=== PATIENT | male | born 1935 | race Caucasian/White ===

== ENCOUNTER 2017-05-15 11:32 | Inpatient (IN) | payer MEDICARE ==
[~2017-05-15] VITALS: Ht 188 cm; Wt 76.2 kg
[2017-05-15] MEDS ORDERED: ONDANSETRON 4 MG/2 ML VIAL IV PRN (15:45)
[2017-05-15] MEDS ORDERED: Z GUARD REMEDY PASTE 57 GM TUBE TOP PRN (15:45)
[2017-05-15] MEDS ORDERED: MAGNESIUM HYDROXIDE 30 ML LIQUID UDC PO PRN (15:45)
[2017-05-15] MEDS ORDERED: HYDROCODONE/APAP 5-325MG TABLET PO PRN ×2 (15:45→20:45)
[2017-05-15] MEDS ORDERED: ACETAMINOPHEN 325 MG TABLET PO PRN ×2 (15:45→20:45)
[2017-05-15] MEDS ORDERED: ZOLPIDEM 5 MG TABLET PO PRN ×2 (15:45→20:45)
[2017-05-15] MEDS ORDERED: ACET-2154 PO (15:49)
[2017-05-15] MEDS ORDERED: ASCO500T10 PO (15:51)
[2017-05-15] MEDS ORDERED: ASPI81TA31 PO (15:53)
[2017-05-15] MEDS ORDERED: ATOR10TA PO (15:53)
[2017-05-15] MEDS ORDERED: CARB1TAB24 PO (15:57)
[2017-05-15] MEDS ORDERED: CHOL400T PO (15:58)
[2017-05-15] MEDS ORDERED: DIGO250T PO (16:00)
[2017-05-15] MEDS ORDERED: RASA1TAB4 PO (16:01)
[2017-05-15] MEDS ORDERED: HYDR-3974 PO (16:02)
[2017-05-15] MEDS ORDERED: MAG360OR83 PO (16:04)
[2017-05-15] MEDS ORDERED: MAGN400O6 PO (16:09)
[2017-05-15] MEDS ORDERED: MIDO5TAB PO (16:09)
[2017-05-15] MEDS ORDERED: MULT-24 PO (16:12)
[2017-05-15] MEDS ORDERED: MUPI22OI2 TP (16:14)
[2017-05-15] MEDS ORDERED: ONDA4TAB10 PO (16:15)
[2017-05-15] MEDS ORDERED: RIVA20TA PO (16:16)
[2017-05-15] MEDS ORDERED: VITA1TAB17 PO (16:21)
[2017-05-15] MEDS ORDERED: ZOLP5TAB8 PO (16:22)
[2017-05-15 16:58] VITALS: BP 130/77
--- NOTE | 2017-05-15 17:52 | NUR ---
pt admitted from [facility] at 1530. pt vitals stable. no signs of acute distress. all pertinent assessments done. pt has stage 2 sacral ulcer. wound consult order placed. pt tolerates room air. pt is afebrile. pt is alert and oriented x2. pt overestimates own ability. caregiver bedside and alarm on. pt instructed to use diaper until pt is assessed by PT. pt agreed. discussed plan of care with the family. belongings list on chart. pt has money bedside. instructed family to take the money for safety. family states that patient would want to keep the money to buy things he wants. pt agrees. pt has 300 dollars to start at bedside. all admission pictures in chart. will continue to monitor.
--- NOTE | 2017-05-15 18:45 | NUR ---
pt stable throughout the day. pt continues to show no signs of confusion during shift. pt on fall precautions. will endorse to boom truck driver nurse.
--- NOTE | 2017-05-15 19:44 | NUR ---
Received pt in bed, appearing to be asleep but arousable to verbal stimuli. No acute distress noted. Denies pain or discomfort at this time. Caregiver at bedside. All safety measures and fall precautions maintained. Call light and all personal belongings within reach. Will continue to monitor. MD notified regarding medication reconciliation
[2017-05-15] MEDS ORDERED: MAG HYDROX/AL HYDROX/SIMETH 30 ML LIQUID UDC PO PRN (20:45)
[2017-05-15 20:52] VITALS: BP 137/69
[2017-05-15] MEDS: MAGNESIUM HYDROXIDE 30 ML LIQUID UDC PO SCH ×2 (21:00→21:41)
[2017-05-15] MEDS: MUPIROCIN 2% OINT 22 GM TUBE NS SCH ×2 (21:00→21:41)
[2017-05-15] MEDS ORDERED: MUPIROCIN 2% OINT 22 GM TUBE TP SCH (21:00)
[2017-05-15] MEDS: ATORVASTATIN 10 MG TABLET PO SCH ×2 (21:00→21:40)
[2017-05-15] MEDS: DOCUSATE SODIUM 100 MG CAPSULE PO SCH ×2 (21:00→21:40)
--- NOTE | 2017-05-15 21:40 | NUR ---
Entered room, pt noted appearing to be asleep. Attempting to give 2100 medications, but pt was unresponsive to verbal and tactile stimuli. Caregiver at bedside. Saturation upon assessment noted to be 86%, but no acute distress noted. Breathing even and unlabored. Pt placed on 2L NC. VS WNL 137/83, HR 60, RR 16, and 100% saturation. Noted to be unresponsive to sternal rub and pressure on nail beds. Dr. Felix assessed pt, and per MD pt may be having a seizure. MD ordered Ativan 0.5 mg IVP q 2 hr PRN seizure. Noted and carried out. Started IV 22g on R AC, good blood return. Patent and intact. Saline locked. Administered IV medications as ordered. Well tolerated. No acute distress noted. No SOB, breathing even and unlabored. Continue to monitor patient throughout shift. Safety maintained. Caregiver remains at bedside.
[2017-05-15] MEDS ORDERED: LORAZEPAM 2 MG/1 ML VIAL IV PRN (22:00)
[2017-05-15] MEDS ORDERED: LORAZEPAM 2 MG/1 ML VIAL ONE (22:26)
--- NOTE | 2017-05-15 22:34 | NUR ---
Ativan 0.5 mg IVP given. Well tolerated. Safety maintained. Call light within reach. Caregiver at bedside. Will continue to monitor.
--- NOTE | 2017-05-16 00:21 | NUR ---
Pt noted to be verbally responsive, able to make needs known. Alert and oriented to person, but not location or date. Caregiver at bedside. Continuing 2L NC with saturation above 90%. No acute distress noted. Breathing even and unlabored, no SOB noted. Denies pain or discomfort at this time. Safety maintained. Call light and all personal belongings within reach. Will continue to monitor.
[2017-05-16] MEDS: PANTOPRAZOLE SODIUM 40 MG TABLET.DR PO SCH (06:24)
--- NOTE | 2017-05-16 06:24 | NUR ---
Attempted to give pt 0700 medications. Pt noted to be unresponsive to verbal stimuli but responsive to tactile stimuli. Wiped pt's face with cold towel and pt awoke, noted with facial grimacing. No acute distress noted. Breathing even and unlabored with no SOB noted. Noted to be snoring. VS WNL, 109/69, HR 72, 16 RR, and 98% saturation on 2L NC. Caregiver at bedside. Call light within reach. Safety maintained. Will continue to monitor. Will endorse to AM shift.
[2017-05-16 08:00] VITALS: BP 126/76
--- NOTE | 2017-05-16 08:00 | NUR ---
Received patient, lethargic. Hard to wake-up but able to follow simple commands, however is drowsy. On o2 at 2lpm.
[2017-05-16] MEDS: CHOLECALCIFEROL 400 UNITS TABLET PO SCH (09:00)
[2017-05-16] MEDS ORDERED: CARBIDOPA/LEVODOPA 25-250MG TABLET PO SCH (09:00)
[2017-05-16] MEDS ORDERED: VITAMIN B COMP W C PO SCH (09:00)
[2017-05-16] MEDS: VITAMIN B COMPLEX 1 TABLET PO SCH (09:00)
[2017-05-16] MEDS ORDERED: Medication Not On Formulary EA (Rasagiline Mesylate 1 MG) PO SCH (09:00)
[2017-05-16] MEDS: ASCORBIC ACID 500 MG TABLET PO SCH (09:00)
[2017-05-16] MEDS: MULTIVITAMINS,THERAPEUTIC TABLET PO SCH (09:00)
--- NOTE | 2017-05-16 09:00 | NUR ---
Patient very drowsy. Rest of AM medications was not given since patient is sedated. Informed Dr. Felix.
[2017-05-16] MEDS: ASPIRIN 81 MG TAB.CHEW PO SCH (09:08)
[2017-05-16] MEDS: MIDODRINE HCL 5 MG TABLET PO SCH ×3 (09:10→17:51)
[2017-05-16] MEDS: MUPIROCIN 2% OINT 22 GM TUBE NS SCH ×2 (09:27→20:19)
--- NOTE | 2017-05-16 10:00 | NUR ---
Patient had syncopal episode. Patient was up with physical therapy and therapist claimed patient lost consciousness while using the toilet. Patient regained consciousness less than a minute. Patient had 1 episode of vomiting after regaining consciousness, VS was as follows: Spo2 89% BP- 135/105 IN-77 Blood sugar 118. Addendum: 05/16/17 at 1558 by PIPPA PAIGE RN Notes for different patient
--- NOTE | 2017-05-16 10:30 | NUR ---
Patient awake, alert x2-3. Able to follow commands. Not in any form of distress. With relative at bedside. Able to tolerate fluids
--- NOTE | 2017-05-16 10:34 | NUR ---
Patient awake, alert x3. In bed resting with O2 sat at 98% with O2 at 2Lpm. Informed Dr. Felix, patient for GI consult. To start NS at 75cc/hr Addendum: 05/16/17 at 1559 by PIPPA PAIGE RN Notes for different patient
--- NOTE | 2017-05-16 11:00 | NUR ---
Seen and examined by Dr. Dooley. Dr Dooley facilitated care with therapists. Possible D/C of Ativan.
--- NOTE | 2017-05-16 13:48 | NUR ---
INTERDISCIPLINARY TEAM CONFERENCE
[2017-05-16] MEDS: DIGOXIN 250 MCG TABLET PO SCH (13:49)
--- NOTE | 2017-05-16 14:00 | NUR ---
INTERDISCIPLINARY TEAM CONFERENCE
--- NOTE | 2017-05-16 16:19 | NUR ---
Patient asleep in room air. Non-labored breathing. O2 sat at at 97%
--- NOTE | 2017-05-16 16:24 | NUR ---
Received patient, lethargic. Hard to wake-up but able to follow simple commands, however is drowsy. On o2 at 2lpm. Addendum: 05/16/17 at 1631 by PIPPA PAIGE RN Charting for 8:00 am 05/16/09
[2017-05-16] MEDS: CARBIDOPA/LEVODOPA 25-250MG TABLET PO SCH (17:52)
[2017-05-16] MEDS: RIVAROXABAN 10 MG TABLET PO SCH (17:53)
[2017-05-16] MEDS: MAGNESIUM HYDROXIDE 30 ML LIQUID UDC PO SCH (20:19)
[2017-05-16] MEDS: ATORVASTATIN 10 MG TABLET PO SCH (20:19)
[2017-05-16] MEDS: DOCUSATE SODIUM 100 MG CAPSULE PO SCH (20:19)
[2017-05-16 20:39] VITALS: BP 116/73
--- NOTE | 2017-05-17 05:48 | NUR ---
Patient slept comfortably at night. Caregiver at bedside. Room air 98%. No acute distress noted. No c/o pain or discomfort. Meds given and patient has been compliant. Safety measures maintained. Call light and personal belongings within reach. Will endorse to day shift RN. Continue to monitor.
[2017-05-17] MEDS: PANTOPRAZOLE SODIUM 40 MG TABLET.DR PO SCH (06:24)
--- NOTE | 2017-05-17 07:50 | NUR ---
Received patient asleep, easily arousable, not in any form of acute distress. No noted signs of any pain or discomfort at this time. Patient's caregiver at bedside. Call light placed within reach.
[2017-05-17 08:58] VITALS: BP 124/82
[2017-05-17] MEDS: CHOLECALCIFEROL 400 UNITS TABLET PO SCH (09:39)
[2017-05-17] MEDS: ASPIRIN 81 MG TAB.CHEW PO SCH (09:39)
[2017-05-17] MEDS: MULTIVITAMINS,THERAPEUTIC TABLET PO SCH (09:39)
[2017-05-17] MEDS: ASCORBIC ACID 500 MG TABLET PO SCH (09:40)
[2017-05-17] MEDS: MIDODRINE HCL 5 MG TABLET PO SCH ×3 (09:41→17:00)
[2017-05-17] MEDS: CARBIDOPA/LEVODOPA 25-250MG TABLET PO SCH ×2 (09:41→17:59)
[2017-05-17] MEDS: VITAMIN B COMPLEX 1 TABLET PO SCH (09:42)
[2017-05-17] MEDS: MUPIROCIN 2% OINT 22 GM TUBE NS SCH ×2 (09:43→20:20)
--- NOTE | 2017-05-17 10:45 | NUR ---
Patient up with physical therapist ambulating with walker along the hallway. No complain of any pain or discomfort.
[2017-05-17] MEDS: DIGOXIN 250 MCG TABLET PO SCH (13:58)
[2017-05-17] MEDS: AZILECT 1 MG PO SCH (14:09)
[2017-05-17] MEDS: RIVAROXABAN 10 MG TABLET PO SCH (18:06)
--- NOTE | 2017-05-17 18:56 | NUR ---
Notified Dr. Felix regarding BP of 145/89 with due midodrine and asked for hold parameter for administering midodrine. Per MD hold due dose and hold medication for SBP of 140 and above.
--- NOTE | 2017-05-17 19:30 | NUR ---
Received patient resting comfortably in bed and watching TV. Room air. MRSA of the nares came out negative. No acute distress noted. No c/o pain or discomfort. Safety measures maintained. Call light and personal belongings within reach. Will continue to monitor.
[2017-05-17] MEDS ORDERED: AMLODIPINE 5 MG TABLET PO ONE (20:15)
[2017-05-17] MEDS: MAGNESIUM HYDROXIDE 30 ML LIQUID UDC PO SCH (20:19)
[2017-05-17] MEDS: ATORVASTATIN 10 MG TABLET PO SCH (20:20)
[2017-05-17] MEDS: DOCUSATE SODIUM 100 MG CAPSULE PO SCH (20:20)
--- NOTE | 2017-05-17 20:20 | NUR ---
Pt's BP elevated 169/98, HR 60. Notified Dr. Felix. Received new order for amlodipine 5mg NOW and DAILY PO. Scheduled midodrine 5mg changed to PRN tid. Will follow through with the new orders.
[2017-05-17] MEDS ORDERED: MIDODRINE HCL 5 MG TABLET PO PRN (20:30)
--- NOTE | 2017-05-17 20:30 | NUR ---
Meds given per MD's order. No acute distress noted. Patient is alert and communicating well. No c/o pain or discomfort. Will continue to monitor patient.
[2017-05-17] MEDS ORDERED: AMLODIPINE 5 MG TABLET ONE (20:31)
[2017-05-17 20:41] VITALS: BP 169/98
[2017-05-17 21:30] VITALS: BP 151/93
--- NOTE | 2017-05-17 21:30 | NUR ---
Pt's BP 151/93, HR 60. No acute distress noted. No c/o pain or discomfort. Will continue to monitor.
--- NOTE | 2017-05-18 04:59 | NUR ---
Patient slept comfortably. Caregiver at bedside. Meds given per MD's order. Pt has been compliant. VS has been stable. All needs attended to promptly. . Turned and repositioned. Will endorse to day shift RN. Continue to monitor.
[2017-05-18] MEDS: PANTOPRAZOLE SODIUM 40 MG TABLET.DR PO SCH (06:15)
[2017-05-18 08:05] VITALS: BP 125/87
[2017-05-18] MEDS: ASPIRIN 81 MG TAB.CHEW PO SCH (08:50)
[2017-05-18] MEDS: CHOLECALCIFEROL 400 UNITS TABLET PO SCH (08:51)
[2017-05-18] MEDS: ASCORBIC ACID 500 MG TABLET PO SCH (08:51)
[2017-05-18] MEDS: CARBIDOPA/LEVODOPA 25-250MG TABLET PO SCH ×2 (08:52→18:20)
[2017-05-18] MEDS: VITAMIN B COMPLEX 1 TABLET PO SCH (08:53)
[2017-05-18] MEDS: MULTIVITAMINS,THERAPEUTIC TABLET PO SCH (08:54)
[2017-05-18] MEDS: AZILECT 1 MG PO SCH (08:55)
[2017-05-18] MEDS: AMLODIPINE 5 MG TABLET PO SCH (08:56)
[2017-05-18] MEDS: MUPIROCIN 2% OINT 22 GM TUBE NS SCH (09:03)
[2017-05-18] MEDS: DIGOXIN 250 MCG TABLET PO SCH (13:00)
[2017-05-18] MEDS: NEUPRO 4 MG/24 HR TOP SCH (15:09)
--- NOTE | 2017-05-18 18:05 | NUR ---
Patient is awake and alert, compliant with his plan of care, denies any pain and not in acute distress at this time. Provided with safety and fall precautions implemented, bed-locked and on a low position, with bed alarm on as well. Encouraged patient to turn and reposition for pressure relief. Needs attended promptly. Call light in reach.
[2017-05-18] MEDS: RIVAROXABAN 10 MG TABLET PO SCH (18:21)
--- NOTE | 2017-05-18 19:43 | NUR ---
Pt resting comfortably in bed and talking on the phone with . AAO X2. No acute distress noted. No c/o pain or discomfort. Safety measures maintained. Bed alarm on. Call light and personal belongings within reach. Will continue to monitor.
[2017-05-18] MEDS: ATORVASTATIN 10 MG TABLET PO SCH (20:01)
[2017-05-18] MEDS: DOCUSATE SODIUM 100 MG CAPSULE PO SCH (20:02)
[2017-05-18 20:42] VITALS: BP 144/91
--- NOTE | 2017-05-19 06:02 | NUR ---
Patient slept comfortably t/o the night. Caregiver at bedside. Meds given per MD's order. Pt compliant. Assisted to the bathroom as needed. All needs attended to promptly. Will endorse to day shift RN. Continue to monitor.
[2017-05-19] MEDS: PANTOPRAZOLE SODIUM 40 MG TABLET.DR PO SCH (06:12)
[2017-05-19 07:59] VITALS: BP 154/96
[2017-05-19] MEDS: VITAMIN B COMPLEX 1 TABLET PO SCH (08:29)
[2017-05-19] MEDS: ASPIRIN 81 MG TAB.CHEW PO SCH (08:29)
[2017-05-19] MEDS: AZILECT 1 MG PO SCH (08:30)
[2017-05-19] MEDS: AMLODIPINE 5 MG TABLET PO SCH (08:31)
[2017-05-19] MEDS: CARBIDOPA/LEVODOPA 25-250MG TABLET PO SCH ×2 (08:32→16:44)
[2017-05-19] MEDS: ASCORBIC ACID 500 MG TABLET PO SCH (08:33)
[2017-05-19] MEDS: MULTIVITAMINS,THERAPEUTIC TABLET PO SCH (08:33)
[2017-05-19] MEDS: CHOLECALCIFEROL 400 UNITS TABLET PO SCH (08:33)
[2017-05-19] MEDS: NEUPRO 4 MG/24 HR TOP SCH (08:35)
[2017-05-19] MEDS: DIGOXIN 250 MCG TABLET PO SCH (14:10)
[2017-05-19] MEDS: RIVAROXABAN 10 MG TABLET PO SCH (17:06)
--- NOTE | 2017-05-19 17:31 | NUR ---
Patient is awake and alert, compliant with his plan of care, denies any pain and not in acute distress at this time. came by to visit and encouraged patient to eat, since he didnt eat his lunch, patient was able to eat atleast 75% with 's encouragement. Safety and fall precautions implemented, bed-locked and on a low position, with bed alarm on as well. Encouraged patient to turn and reposition for pressure relief. Needs attended promptly,kept clean and dry, Call light in reach.
[2017-05-19] MEDS: ATORVASTATIN 10 MG TABLET PO SCH (20:48)
[2017-05-19] MEDS: DOCUSATE SODIUM 100 MG CAPSULE PO SCH (20:48)
[2017-05-19 21:00] VITALS: BP 153/96
[2017-05-19 21:32] VITALS: BP 153/96
[2017-05-20] MEDS: PANTOPRAZOLE SODIUM 40 MG TABLET.DR PO SCH (06:32)
[2017-05-20 08:14] VITALS: BP 153/92
[2017-05-20] MEDS: CARBIDOPA/LEVODOPA 25-250MG TABLET PO SCH ×2 (08:39→17:22)
[2017-05-20] MEDS: ASCORBIC ACID 500 MG TABLET PO SCH (08:39)
[2017-05-20] MEDS: ASPIRIN 81 MG TAB.CHEW PO SCH (08:39)
[2017-05-20] MEDS: AZILECT 1 MG PO SCH (08:39)
[2017-05-20] MEDS: CHOLECALCIFEROL 400 UNITS TABLET PO SCH (08:39)
[2017-05-20] MEDS: VITAMIN B COMPLEX 1 TABLET PO SCH (08:39)
[2017-05-20] MEDS: MULTIVITAMINS,THERAPEUTIC TABLET PO SCH (08:39)
[2017-05-20] MEDS: AMLODIPINE 5 MG TABLET PO SCH (08:41)
[2017-05-20] MEDS: NEUPRO 4 MG/24 HR TOP SCH (08:46)
[2017-05-20] MEDS: DIGOXIN 250 MCG TABLET PO SCH (12:23)
[2017-05-20] MEDS: RIVAROXABAN 10 MG TABLET PO SCH (17:24)
--- NOTE | 2017-05-20 19:29 | NUR ---
pt stable throughout the day. pt continues to be stable no new injuries noted. bed alarm and bedsite private caregiver at some parts of the day. pt vitals stable. will endorse to line palletizer nurse.
--- NOTE | 2017-05-20 19:30 | NUR ---
PT IN ROOM ALERT AND ASLEEP. DENIES ANY HEADACHES, PAIN, SOB, OR DISCOMFORT AT THIS TIME. SPOUSE AWARE OF RECENT FOOD INTAKE. AWAITING CG PER SPOUSE LATER TONIGHT. BP NOTED 142/68. CONTINUE TO MONITOR.
[2017-05-20 20:47] VITALS: BP 142/68
[2017-05-20] MEDS: ATORVASTATIN 10 MG TABLET PO SCH (21:27)
[2017-05-20] MEDS: DOCUSATE SODIUM 100 MG CAPSULE PO SCH (21:28)
--- NOTE | 2017-05-21 01:00 | NUR ---
PT IN ROOM ASLEEP AT THIS TIME IN NO ACUTE DISTRESS. CG NOTED AT BEDSIDE. CONTINUE TO MONITOR.
--- NOTE | 2017-05-21 06:00 | NUR ---
PT IN ROOM ALERT AWAKE IN NO ACUTE DISTRESS. DENIES ANY PAIN OR DISCOMFORT. ABLE TO SLEEP WITIHOUT DIFFICULTY. CG AT BEDSIDE ASSISTING WITH ADLS. PT REPOSITIONED AND MAINTAINED HOB AT 30 DEGREES. CONTINUE TO MONITOR.
[2017-05-21] MEDS: PANTOPRAZOLE SODIUM 40 MG TABLET.DR PO SCH (06:45)
[2017-05-21 08:00] VITALS: BP 129/85
[2017-05-21 08:40] LABS: BASOPHILS # (AUTO) 0.1 K/uL (0.0-8.0); BASOPHILS % (AUTO) 1.3 % (0.0-2.0); EOSINOPHILS # (AUTO) 0.4 K/uL (0.0-0.7); EOSINOPHILS % (AUTO) 4.2 % (0.0-7.0); HEMATOCRIT 39.3 % (36.7-47.1); HEMOGLOBIN 13.6 g/dL (12.5-16.3); LYMPHOCYTES # (AUTO) 1.9 K/uL (20.0-40.0); MEAN CORPUSCULAR HEMOGLOBIN 31.6 uug (23.8-33.4); MEAN CORPUSCULAR HGB CONC 35 g/dL (32.5-36.3); MEAN CORPUSCULAR VOLUME 91.5 fL (73.0-96.2); MONOCYTES # (AUTO) 0.7 K/uL (2.0-10.0); MONOCYTES % (AUTO) 7.7 % (0.0-11.0); NEUTROPHILS # (AUTO) 6.4 K/uL (1.8-8.9); NEUTROPHILS % (AUTO) 66.8 % (38.5-71.5); PLATELET COUNT (AUTO) 341 K/uL (152-348); WHITE BLOOD COUNT (AUTO) 9.6 K/uL (3.6-10.2)
[2017-05-21] MEDS: AZILECT 1 MG PO SCH (09:00)
[2017-05-21 09:01] LABS: THYROID STIMULATING HORMONE 3.316 mIU/mL (0.358-3.740)
[2017-05-21 09:26] LABS: ALANINE AMINOTRANSFERASE 11 U/L (16-63); ALKALINE PHOSPHATASE 55 U/L (50-136); ASPARTATE AMINOTRANSFERASE 29 U/L (15-37); CARBON DIOXIDE 27 mmol/L (21-32); CHLORIDE 105 mmol/L (98-107); CHOLESTEROL 136 mg/dL (<200); CREATININE 1.2 mg/dL (0.6-1.3); GLUCOSE 80 mg/dL (74-106); HDL CHOLESTEROL 29 mg/dL (40-60); MAGNESIUM 2.1 mg/dL (1.8-2.4); PHOSPHOROUS 3.6 mg/dL (2.5-4.9); POTASSIUM 3.7 mmol/L (3.5-5.1); TOTAL PROTEIN, SERUM 6.7 g/dL (6.4-8.2); TRIGLYCERIDES 105 MG/DL (30-150); UREA NITROGEN, BLOOD 14 mg/dL (7-18)
[2017-05-21] MEDS: ASPIRIN 81 MG TAB.CHEW PO SCH (09:28)
[2017-05-21] MEDS: MULTIVITAMINS,THERAPEUTIC TABLET PO SCH (09:28)
[2017-05-21] MEDS: CHOLECALCIFEROL 400 UNITS TABLET PO SCH (09:28)
[2017-05-21] MEDS: AMLODIPINE 5 MG TABLET PO SCH (09:29)
[2017-05-21] MEDS: CARBIDOPA/LEVODOPA 25-250MG TABLET PO SCH ×2 (09:30→17:26)
[2017-05-21] MEDS: ASCORBIC ACID 500 MG TABLET PO SCH (09:31)
[2017-05-21] MEDS: NEUPRO 4 MG/24 HR TOP SCH (09:32)
[2017-05-21] MEDS: VITAMIN B COMPLEX 1 TABLET PO SCH (09:33)
[2017-05-21] MEDS: DIGOXIN 250 MCG TABLET PO SCH (13:41)
[2017-05-21] MEDS: RIVAROXABAN 10 MG TABLET PO SCH (17:27)
--- NOTE | 2017-05-21 17:54 | NUR ---
Patient remains stable throughout the shift, no c/o pain or discomfort noted, no injury or episode of fall noted. Medication compliant and cooperative. Visited by family. Will continue to monitor for safety and needs.
[2017-05-21 19:45] VITALS: BP 139/67
--- NOTE | 2017-05-21 19:46 | NUR ---
Pt sleeping comfortably in bed. Awaken easily when called by name. AAO x2. No acute distress noted. No c/o pain or discomfort. Safety measures maintained. Call light and personal belongings within reach. Will continue to monitor.
[2017-05-21] MEDS: ATORVASTATIN 10 MG TABLET PO SCH (21:16)
[2017-05-21] MEDS: DOCUSATE SODIUM 100 MG CAPSULE PO SCH (21:16)
[2017-05-21] MEDS ORDERED: DOCUSATE SODIUM 100 MG CAPSULE PO ONE (21:23)
--- NOTE | 2017-05-22 05:47 | NUR ---
Pt slept comfortably t/o the night. VSS. Caregiver at bedside. Meds given per MD's order. Pt compliant. All needs attended to promptly. Turned and repositioned patient. Offloading on the sacral area. New picture taken and put in the chart. Will endorse to day shift RN. Continue to monitor.
[2017-05-22] MEDS: PANTOPRAZOLE SODIUM 40 MG TABLET.DR PO SCH (06:12)
[2017-05-22] MEDS: VITAMIN B COMPLEX 1 TABLET PO SCH (09:00)
[2017-05-22] MEDS: AZILECT 1 MG PO SCH (09:00)
[2017-05-22 09:08] VITALS: BP 121/78
[2017-05-22] MEDS: ASCORBIC ACID 500 MG TABLET PO SCH (09:53)
[2017-05-22] MEDS: CARBIDOPA/LEVODOPA 25-250MG TABLET PO SCH ×2 (09:53→18:22)
[2017-05-22] MEDS: CHOLECALCIFEROL 400 UNITS TABLET PO SCH (09:54)
[2017-05-22] MEDS: ASPIRIN 81 MG TAB.CHEW PO SCH (09:54)
[2017-05-22] MEDS: MULTIVITAMINS,THERAPEUTIC TABLET PO SCH (09:55)
[2017-05-22] MEDS: AMLODIPINE 5 MG TABLET PO SCH (09:55)
[2017-05-22] MEDS: NEUPRO 4 MG/24 HR TOP SCH (09:56)
[2017-05-22] MEDS: DIGOXIN 250 MCG TABLET PO SCH (13:00)
[2017-05-22] MEDS: RIVAROXABAN 10 MG TABLET PO SCH (18:24)
[2017-05-22 20:01] VITALS: BP 122/83
[2017-05-22] MEDS: DOCUSATE SODIUM 100 MG CAPSULE PO SCH (20:57)
[2017-05-22] MEDS: ATORVASTATIN 10 MG TABLET PO SCH (20:57)
--- NOTE | 2017-05-22 22:02 | NUR ---
Patient resting comfortably, no signs of distress noted. Assisted to the bathroom, patient voided w/o difficulty. Tolerated night p.o medications. Personal male-caregiver came to swatch the patient all night for safety. Will continue to monitor.
[2017-05-23] MEDS: PANTOPRAZOLE SODIUM 40 MG TABLET.DR PO SCH (06:10)
[2017-05-23 08:16] VITALS: BP 121/74
[2017-05-23] MEDS: CHOLECALCIFEROL 400 UNITS TABLET PO SCH (08:58)
[2017-05-23] MEDS: CARBIDOPA/LEVODOPA 25-250MG TABLET PO SCH ×2 (08:59→17:47)
[2017-05-23] MEDS: AMLODIPINE 5 MG TABLET PO SCH (09:00)
[2017-05-23] MEDS: ASPIRIN 81 MG TAB.CHEW PO SCH (09:00)
[2017-05-23] MEDS: MULTIVITAMINS,THERAPEUTIC TABLET PO SCH (09:00)
[2017-05-23] MEDS: ASCORBIC ACID 500 MG TABLET PO SCH (09:00)
[2017-05-23] MEDS: VITAMIN B COMPLEX 1 TABLET PO SCH (09:04)
[2017-05-23] MEDS: NEUPRO 4 MG/24 HR TOP SCH (09:04)
[2017-05-23] MEDS: AZILECT 1 MG PO SCH (09:04)
--- NOTE | 2017-05-23 14:03 | NUR ---
INTERDISCIPLINARY TEAM CONFERENCE
[2017-05-23] MEDS: DIGOXIN 250 MCG TABLET PO SCH (15:37)
[2017-05-23] MEDS: RIVAROXABAN 10 MG TABLET PO SCH (17:49)
[2017-05-23 19:56] VITALS: BP 150/90
[2017-05-23] MEDS: DOCUSATE SODIUM 100 MG CAPSULE PO SCH (20:31)
[2017-05-23] MEDS: ATORVASTATIN 10 MG TABLET PO SCH (20:31)
--- NOTE | 2017-05-24 05:37 | NUR ---
PATIENT SLEPT MOST OF THE NIGHT, NO SOB NO CHEST PAIN NOTED, NO COMPLAIN OF PAIN, PATIENT HAS PRIVATE SITTER, KEPT CLEAN AND DRY, CONT TO MONITOR.
[2017-05-24] MEDS: PANTOPRAZOLE SODIUM 40 MG TABLET.DR PO SCH (06:09)
[2017-05-24 07:30] VITALS: BP 122/74
[2017-05-24] MEDS: CARBIDOPA/LEVODOPA 25-250MG TABLET PO SCH ×2 (08:20→17:13)
[2017-05-24] MEDS: ASPIRIN 81 MG TAB.CHEW PO SCH (08:20)
[2017-05-24] MEDS: ASCORBIC ACID 500 MG TABLET PO SCH (08:21)
[2017-05-24] MEDS: CHOLECALCIFEROL 400 UNITS TABLET PO SCH (08:22)
[2017-05-24] MEDS: VITAMIN B COMPLEX 1 TABLET PO SCH (08:22)
[2017-05-24] MEDS: MULTIVITAMINS,THERAPEUTIC TABLET PO SCH (08:22)
[2017-05-24] MEDS: AMLODIPINE 5 MG TABLET PO SCH (08:22)
[2017-05-24] MEDS: NEUPRO 4 MG/24 HR TOP SCH (08:22)
[2017-05-24] MEDS: AZILECT 1 MG PO SCH (08:23)
--- NOTE | 2017-05-24 09:15 | NUR ---
pt seen on rounding. pt continues to be alert and oriented x 2. shows lethargy and drowsiness. vitals stable. no new injuries noted. fall precautions such as bed alarm and sitter by bedside implemented. pt given meds whole. no signs of aspiration. will continue to monitor.
[2017-05-24] MEDS: DIGOXIN 250 MCG TABLET PO SCH (12:35)
[2017-05-24] MEDS: RIVAROXABAN 10 MG TABLET PO SCH (17:13)
--- NOTE | 2017-05-24 19:57 | NUR ---
Pt sleeping in bed. Easily awaken when called by name. AAO x2. No acute distress noted. No c/o pain or discomfort. Safety measures maintained. Bed alarm on. Call light and personal belongings within reach. Will continue to monitor.
[2017-05-24 20:17] VITALS: BP 120/70
[2017-05-24] MEDS: ATORVASTATIN 10 MG TABLET PO SCH (20:36)
[2017-05-24] MEDS: DOCUSATE SODIUM 100 MG CAPSULE PO SCH (20:36)
--- NOTE | 2017-05-25 05:41 | NUR ---
Pt slept comfortably t/o the night. Vital signs stable. Caregiver at bedside. Meds given per MD's order. Pt compliant. Assisted to the bathroom as needed. All needs attended to promptly. Will endorse to day shift RN. Continue to monitor.
[2017-05-25] MEDS: PANTOPRAZOLE SODIUM 40 MG TABLET.DR PO SCH (06:16)
[2017-05-25 08:33] VITALS: BP 132/81
[2017-05-25] MEDS: ASCORBIC ACID 500 MG TABLET PO SCH (09:46)
[2017-05-25] MEDS: AMLODIPINE 5 MG TABLET PO SCH (09:47)
[2017-05-25] MEDS: CARBIDOPA/LEVODOPA 25-250MG TABLET PO SCH ×2 (09:47→18:03)
[2017-05-25] MEDS: VITAMIN B COMPLEX 1 TABLET PO SCH (09:48)
[2017-05-25] MEDS: ASPIRIN 81 MG TAB.CHEW PO SCH (09:48)
[2017-05-25] MEDS: NEUPRO 4 MG/24 HR TOP SCH (09:49)
[2017-05-25] MEDS: CHOLECALCIFEROL 400 UNITS TABLET PO SCH (09:49)
[2017-05-25] MEDS: MULTIVITAMINS,THERAPEUTIC TABLET PO SCH (09:49)
[2017-05-25] MEDS: AZILECT 1 MG PO SCH (09:50)
[2017-05-25] MEDS: DIGOXIN 250 MCG TABLET PO SCH (13:49)
[2017-05-25] MEDS: RIVAROXABAN 10 MG TABLET PO SCH (18:06)
--- NOTE | 2017-05-25 19:38 | NUR ---
Pt resting comfortably in bed. AAO x2. Pt asked to go to the bathroom and was assisted. BRP with assist. No acute distress noted. No c/o pain or discomfort. Safety measures maintained. Bed alarm on. Call light and personal belongings within reach. Will continue to monitor.
[2017-05-25] MEDS: DOCUSATE SODIUM 100 MG CAPSULE PO SCH (20:44)
[2017-05-25] MEDS: ATORVASTATIN 10 MG TABLET PO SCH (20:44)
[2017-05-25 20:47] VITALS: BP 118/73
--- NOTE | 2017-05-26 00:40 | NUR ---
Pt trying to get out of bed. Had an episode of confusion. Pt looking for [employer] or Dustin, his personal shopper at night. No caregiver at bedside tonight. Contacted family as per pt's request but no answer. Reoriented pt about the situation and the unit. Safety measures maintained. Bed alarm on. Call light and personal belongings within reach. Will continue to closely monitor.
--- NOTE | 2017-05-26 05:34 | NUR ---
Pt slept intermittently. Mostly awake and looking for his caregiver. Explained situation and reoriented patient. Tried to get out of bed multiple times. Sat by the pt to prevent fall as much as possible. Bed alarm always on. Will notify his son about the caregiver situation, as requested by son and pt. VSS. Assisted to the bathroom as needed. All needs attended to promptly. Will endorse to day shift RN. Continue to monitor.
[2017-05-26] MEDS: PANTOPRAZOLE SODIUM 40 MG TABLET.DR PO SCH (06:11)
[2017-05-26 07:10] VITALS: BP 138/76
[2017-05-26 08:00] VITALS: BP 146/84
[2017-05-26] MEDS: CARBIDOPA/LEVODOPA 25-250MG TABLET PO SCH ×2 (08:33→16:54)
[2017-05-26] MEDS: MULTIVITAMINS,THERAPEUTIC TABLET PO SCH (08:33)
[2017-05-26] MEDS: ASCORBIC ACID 500 MG TABLET PO SCH (08:34)
[2017-05-26] MEDS: ASPIRIN 81 MG TAB.CHEW PO SCH (08:34)
[2017-05-26] MEDS: CHOLECALCIFEROL 400 UNITS TABLET PO SCH (08:35)
[2017-05-26] MEDS: AMLODIPINE 5 MG TABLET PO SCH (08:35)
[2017-05-26] MEDS: AZILECT 1 MG PO SCH (08:36)
[2017-05-26] MEDS: VITAMIN B COMPLEX 1 TABLET PO SCH (08:36)
[2017-05-26] MEDS: NEUPRO 4 MG/24 HR TOP SCH (08:37)
--- NOTE | 2017-05-26 10:42 | NUR ---
SBAR report received, board updated. Pt assessed, alert and oriented x1. Pt able to make needs known, Pt diaper changed, BMx1. Pt denies pain or discomfort at this time. Pt compliant with routine morning medications. Caregiver present at bedside. Pt compliant with therapy as scheduled. Bed in locked, lowest position. Pt ate 100% of breakfast. Call light within reach. Will continue to monitor.
[2017-05-26] MEDS: DIGOXIN 250 MCG TABLET PO SCH (13:36)
[2017-05-26] MEDS: RIVAROXABAN 10 MG TABLET PO SCH (17:01)
--- NOTE | 2017-05-26 18:30 | NUR ---
Pt ate 100% of dinner, v/s have remained stable throughout this shift. Pt siting in bed comfortably resting. All safety measures met. Pt personal lines insurance advisor expected to arrive shortly but not present at this time. Call light within reach. Will continue to monitor and endorse to scene shifter.
--- NOTE | 2017-05-26 20:00 | NUR ---
Received pt lying on bed alert and awake with episodes of confusion. reorient pt. No caregiver at bedside during this time. No acute distress noted. Denies pain. No shortness of breath was noted. All due meds given as ordered and well tolerated. Assisted to the bathroom as needed, tolerated well. Side rails x3. Bed alarm on. Bed locked and in lowest position. kept clean, dry and comfortable. Call light placed within reach. frequently checked for safety. All needs anticipated
[2017-05-26] MEDS: ATORVASTATIN 10 MG TABLET PO SCH (20:41)
[2017-05-26] MEDS: DOCUSATE SODIUM 100 MG CAPSULE PO SCH (20:41)
--- NOTE | 2017-05-27 05:17 | NUR ---
Pt slept intermittently throughout the night with no signs of agitation. Caregiver at bedside. No acute distress was noted. No complaints of any pain and no shortness of breath was noted. Side rails up x2. Bed alarm on. Bed locked and in lowest position. Call light placed within reach. All needs anticipated.
[2017-05-27] MEDS: PANTOPRAZOLE SODIUM 40 MG TABLET.DR PO SCH (06:10)
[2017-05-27 07:10] VITALS: BP 145/86
[2017-05-27 07:10] LABS: BASOPHILS # (AUTO) 0.2 K/uL (0.0-8.0); BASOPHILS % (AUTO) 1.4 % (0.0-2.0); EOSINOPHILS # (AUTO) 0.3 K/uL (0.0-0.7); HEMATOCRIT 41.7 % (36.7-47.1); HEMOGLOBIN 14.3 g/dL (12.5-16.3); LYMPHOCYTES # (AUTO) 1.8 K/uL (20.0-40.0); LYMPHOCYTES % (AUTO) 16.6 % (20.5-51.5); MEAN CORPUSCULAR HEMOGLOBIN 31.1 uug (23.8-33.4); MEAN CORPUSCULAR HGB CONC 34 g/dL (32.5-36.3); MEAN CORPUSCULAR VOLUME 90.5 fL (73.0-96.2); MONOCYTES # (AUTO) 0.8 K/uL (2.0-10.0); MONOCYTES % (AUTO) 7.4 % (0.0-11.0); NEUTROPHILS # (AUTO) 7.9 K/uL (1.8-8.9); NEUTROPHILS % (AUTO) 71.6 % (38.5-71.5); PLATELET COUNT (AUTO) 390 K/uL (152-348)
[2017-05-27 07:25] LABS: CARBON DIOXIDE 27 mmol/L (21-32); CHLORIDE 104 mmol/L (98-107); CREATININE 1.1 mg/dL (0.6-1.3); GLUCOSE 104 mg/dL (74-106); POTASSIUM 3.7 mmol/L (3.5-5.1); UREA NITROGEN, BLOOD 18 mg/dL (7-18)
[2017-05-27] MEDS: VITAMIN B COMPLEX 1 TABLET PO SCH (09:14)
[2017-05-27] MEDS: AZILECT 1 MG PO SCH (09:14)
[2017-05-27] MEDS: NEUPRO 4 MG/24 HR TOP SCH (09:14)
[2017-05-27] MEDS: MULTIVITAMINS,THERAPEUTIC TABLET PO SCH (09:14)
[2017-05-27] MEDS: ASCORBIC ACID 500 MG TABLET PO SCH (09:15)
[2017-05-27] MEDS: CARBIDOPA/LEVODOPA 25-250MG TABLET PO SCH ×2 (09:15→18:15)
[2017-05-27] MEDS: CHOLECALCIFEROL 400 UNITS TABLET PO SCH (09:16)
[2017-05-27] MEDS: ASPIRIN 81 MG TAB.CHEW PO SCH (09:16)
[2017-05-27] MEDS: AMLODIPINE 5 MG TABLET PO SCH (09:17)
--- NOTE | 2017-05-27 10:15 | NUR ---
SBAR report received, board updated. Pt assessed, no c/o pain or SOB. Caregiver present at bedside. Pt compliant with all scheduled morning medications. Bed in locked and lowest position with side rails up x2, bed alarm on. All safety and comfort measures met. Will continue to monitor.
--- NOTE | 2017-05-27 10:32 | NUR ---
I agree Addendum: 05/27/17 at 1032 by MARIANA BRIDGES OT Amended: Links added.
--- NOTE | 2017-05-27 10:32 | NUR ---
I agree Addendum: 05/27/17 at 1033 by MARIANA BRIDGES OT Amended: Links added.
[2017-05-27] MEDS: DIGOXIN 250 MCG TABLET PO SCH (13:24)
[2017-05-27] MEDS: RIVAROXABAN 10 MG TABLET PO SCH (18:19)
--- NOTE | 2017-05-27 18:34 | NUR ---
Pt dosing intermittently while watching TV. Pt seen by MD. No new orders, and no change in status or plan of care. Call light within reach. Pt compliant with all routine medications. Will continue to monitor and endorse to oncoming night court magistrate.
--- NOTE | 2017-05-27 19:36 | NUR ---
received pt asleep, lying comfortably with HOB elevated. No acute distress noted. No facial grimace noted or any signs of pain. No shortness of breath noted. Kept clean, dry and comfortable. Side rails up x3. Bed alarm on. bed locked and in lowest position. Call light within reach. All needs anticipated.
[2017-05-27 20:16] VITALS: BP 106/65
[2017-05-27] MEDS: ATORVASTATIN 10 MG TABLET PO SCH (20:35)
[2017-05-27] MEDS: DOCUSATE SODIUM 100 MG CAPSULE PO SCH (20:35)
--- NOTE | 2017-05-28 05:32 | NUR ---
Patient slept well throughout the shift, not in any form of distress. Caregiver at bedside. No complaints of pain or discomfort. No episodes of agitation noted. Ambulates to the bathroom, tolerated well. Kept clean, dry and comfortable. Safety and fall precautions observed and maintained. Call light within reach. All needs met.
[2017-05-28] MEDS: PANTOPRAZOLE SODIUM 40 MG TABLET.DR PO SCH (06:11)
--- NOTE | 2017-05-28 08:04 | NUR ---
Received patient asleep on RA, non-labored breathing. With private care information associate at bedside. Will continue to monitor.
[2017-05-28 08:26] VITALS: BP 121/80
--- NOTE | 2017-05-28 08:28 | NUR ---
I agree Addendum: 05/28/17 at 8129 by MARIANA BRIDGES OT Amended: Links added.
--- NOTE | 2017-05-28 08:28 | NUR ---
I agree Addendum: 05/28/17 at 0828 by MARIANA BRIDGES OT Amended: Links added.
[2017-05-28] MEDS: VITAMIN B COMPLEX 1 TABLET PO SCH (09:29)
[2017-05-28] MEDS: MULTIVITAMINS,THERAPEUTIC TABLET PO SCH (09:30)
[2017-05-28] MEDS: NEUPRO 4 MG/24 HR TOP SCH (09:30)
[2017-05-28] MEDS: AZILECT 1 MG PO SCH (09:30)
[2017-05-28] MEDS: CARBIDOPA/LEVODOPA 25-250MG TABLET PO SCH ×2 (09:31→17:27)
[2017-05-28] MEDS: ASPIRIN 81 MG TAB.CHEW PO SCH (09:31)
[2017-05-28] MEDS: AMLODIPINE 5 MG TABLET PO SCH (09:32)
[2017-05-28] MEDS: CHOLECALCIFEROL 400 UNITS TABLET PO SCH (09:32)
[2017-05-28] MEDS: ASCORBIC ACID 500 MG TABLET PO SCH (09:33)
--- NOTE | 2017-05-28 10:06 | NUR ---
Caregiver left. Morning care done. Denies any pain. Alert x3. Tolerated breakfast well. Call light within reach. Bed alarm on, locked and low position.
[2017-05-28] MEDS: DIGOXIN 250 MCG TABLET PO SCH (12:58)
--- NOTE | 2017-05-28 12:58 | NUR ---
Patient resting in bed. DE 55. No complaints of dizziness, SOB or other related symptoms. Held Lanoxin for now.
[2017-05-28] MEDS: RIVAROXABAN 10 MG TABLET PO SCH (17:32)
--- NOTE | 2017-05-28 19:30 | NUR ---
Received patient laying in bed. Alert and verbally responsive. Able to make needs known. Denies any pain and discomfort. No acute distress. No SOB. Kept clean and dry. All needs attended to promptly. Call light within reach. Bed alarm on. Will continue to monitor
[2017-05-28 19:53] VITALS: BP 112/68
[2017-05-28] MEDS: ATORVASTATIN 10 MG TABLET PO SCH (21:12)
[2017-05-28] MEDS: DOCUSATE SODIUM 100 MG CAPSULE PO SCH (21:13)
--- NOTE | 2017-05-29 06:13 | NUR ---
Patient slept comfortably throughout the night. Caregiver at bedside. No c/o pain and discomfort. No acute distress. No SOB. Assisted to bathroom in the middle of the night. Kept clean and dry. All needs attended to promptly. Call light within reach. Will continue to monitor.
[2017-05-29] MEDS: PANTOPRAZOLE SODIUM 40 MG TABLET.DR PO SCH (06:33)
--- NOTE | 2017-05-29 08:25 | NUR ---
Received patient awake, verbally responsive, not in any form of acute distress. He denies any pain or discomfort at this time. Call light placed within reach. Reminded to use call light when in need of assistance. Assisted to his needs.
[2017-05-29] MEDS: MULTIVITAMINS,THERAPEUTIC TABLET PO SCH (09:16)
[2017-05-29] MEDS: CHOLECALCIFEROL 400 UNITS TABLET PO SCH (09:16)
[2017-05-29] MEDS: ASPIRIN 81 MG TAB.CHEW PO SCH (09:16)
[2017-05-29] MEDS: CARBIDOPA/LEVODOPA 25-250MG TABLET PO SCH ×2 (09:17→16:30)
[2017-05-29] MEDS: AMLODIPINE 5 MG TABLET PO SCH (09:18)
[2017-05-29] MEDS: ASCORBIC ACID 500 MG TABLET PO SCH (09:18)
[2017-05-29] MEDS: AZILECT 1 MG PO SCH (09:20)
[2017-05-29] MEDS: VITAMIN B COMPLEX 1 TABLET PO SCH (09:20)
[2017-05-29] MEDS: NEUPRO 4 MG/24 HR TOP SCH (09:21)
[2017-05-29 11:35] VITALS: BP 114/77
[2017-05-29] MEDS: DIGOXIN 250 MCG TABLET PO SCH (13:00)
[2017-05-29] MEDS: RIVAROXABAN 10 MG TABLET PO SCH (17:16)
--- NOTE | 2017-05-29 19:25 | NUR ---
Received patient in bed. Alert and verbally responsive. Able to make needs known. Denies any pain and discomfort. No acute distress. No SOB. Kept clean and dry. All needs attended to promptly. Bed alarm on. Call light within reach. Will continue to monitor. Addendum: 05/30/17 at 0612 by FATIMAH SUMNER RN Caregiver at bedside throughout night.
[2017-05-29 20:19] VITALS: BP 153/85
[2017-05-29] MEDS: DOCUSATE SODIUM 100 MG CAPSULE PO SCH (20:38)
[2017-05-29] MEDS: ATORVASTATIN 10 MG TABLET PO SCH (20:38)
[2017-05-30] MEDS: PANTOPRAZOLE SODIUM 40 MG TABLET.DR PO SCH (06:23)
--- NOTE | 2017-05-30 08:32 | NUR ---
Received patient awake, alert, verbally responsive, able to make needs known. No complain of any pain or discomfort. No noted SOB nor dyspnea. Call light placed within reach.
[2017-05-30 08:36] VITALS: BP 134/78
--- NOTE | 2017-05-30 08:42 | NUR ---
I agree Addendum: 05/30/17 at 0843 by MARIANA BRIDGES OT Amended: Links added.
--- NOTE | 2017-05-30 08:42 | NUR ---
I agree Addendum: 05/30/17 at 0842 by MARIANA BRIDGES OT Amended: Links added.
[2017-05-30] MEDS: ASPIRIN 81 MG TAB.CHEW PO SCH (09:01)
[2017-05-30] MEDS: CHOLECALCIFEROL 400 UNITS TABLET PO SCH (09:01)
[2017-05-30] MEDS: CARBIDOPA/LEVODOPA 25-250MG TABLET PO SCH (09:02)
[2017-05-30] MEDS: MULTIVITAMINS,THERAPEUTIC TABLET PO SCH (09:02)
[2017-05-30 09:03] VITALS: BP 134/78
[2017-05-30] MEDS: AMLODIPINE 5 MG TABLET PO SCH (09:03)
[2017-05-30] MEDS: ASCORBIC ACID 500 MG TABLET PO SCH (09:03)
[2017-05-30] MEDS: NEUPRO 4 MG/24 HR TOP SCH (09:05)
[2017-05-30] MEDS: VITAMIN B COMPLEX 1 TABLET PO SCH (09:05)
[2017-05-30] MEDS: AZILECT 1 MG PO SCH (09:05)
--- NOTE | 2017-05-30 12:15 | NUR ---
Received discharge order to home from Dr. Rodney. Order carried out. Patient and July.
--- NOTE | 2017-05-30 13:10 | NUR ---
Patient discharged to home. Picked up by July via private car accompanied by caregiver. Patient remains alert, verbally responsive, able to make needs known, not in any form of acute distress. He denies any pain or discomfort at this time. Discharge instructions provided to patient, and caregiver with verbalized understanding. Discharge papers signed by and given to . Belongings brought home with the patient. All medications that were brought in hospital by family were returned. Reminded regarding follow up appointments that were scheduled with verbalized understanding. Assisted patient to the parking lot via wheelchair by GAEL.
== END 2017-05-30 13:10 | disposition home health service (06) | DRG 56 ==
PROVIDERS: ADMIT Physical Medicine & Rehabilitation Pain Medicine; ATTEND Physical Medicine & Rehabilitation Pain Medicine
DX: G20 Parkinson's disease (principal); G93.49 Other encephalopathy; D68.59 Other primary thrombophilia; I13.0 Hypertensive heart and chronic kidney disease with heart failure and stage 1 through stage 4 chronic kidney disease, or unspecified chronic kidney disease; I50.32 Chronic diastolic (congestive) heart failure; E78.5 Hyperlipidemia, unspecified; N18.9 Chronic kidney disease, unspecified; R53.1 Weakness; I25.2 Old myocardial infarction; Z95.0 Presence of cardiac pacemaker; F02.80 Dementia in other diseases classified elsewhere, unspecified severity, without behavioral disturbance, psychotic disturbance, mood disturbance, and anxiety; R26.9 Unspecified abnormalities of gait and mobility; G90.3 Multi-system degeneration of the autonomic nervous system; M19.90 Unspecified osteoarthritis, unspecified site; K21.9 Gastro-esophageal reflux disease without esophagitis; Z88.0 Allergy status to penicillin
CPT/HCPCS: 36415; 70030-TC; 82306; 83735; 84100; 84443; 85025; 92507; 92523; 97110; 97112; 97116; 97530; 97535; J2060